=== PATIENT | female | born 1965 | race Caucasian/White ===

== ENCOUNTER 2019-02-06 07:20 | Day surgery (SDC) | payer OTHER ==
[2019-02-05 15:53] LABS: APPEARANCE,URINE Clear (CLEAR); BASOPHILS % (AUTO) 0.8 % (0.0-5.0); BILIRUBIN,URINE Negative (NEGATIVE); COLOR,URINE Yellow (YELLOW); EOSINOPHILS % (AUTO) 1.2 % (0.0-8.0); GLUCOSE, URINE (UA) Negative (NEGATIVE); HEMATOCRIT 46.2 % (36-48); KETONES,URINE Negative (NEGATIVE); LEUKOCYTE ESTERASE ,URINE Negative (NEGATIVE); LYMPHOCYTES % (AUTO) 29.8 % (21.0-51.0); MEAN CORPUSCULAR HEMOGLOBIN 30.3 pg (27.0-33.0); MEAN CORPUSCULAR HGB CONC 33.3 g/dL (32.0-36.0); MEAN CORPUSCULAR VOLUME 90.8 fL (79-99); MONOCYTES % (AUTO) 6.5 % (3.0-13.0); NEUTROPHILS % (AUTO) 61.7 % (40.0-77.0); NITRATE,URINE Negative (NEGATIVE); OCCULT BLOOD,URINE Negative (NEGATIVE); PH,URINE 5.5 (5.0-8.0); PLATELET COUNT (AUTO) 282 K/uL (130-400); PROTEIN,URINE Negative (NEGATIVE); RED BLOOD CELL COUNT(AUTO) 5.09 MIL/uL (4.00-5.50); RED CELL DISTRIBUTION WIDTH 13.6 % (11.0-15.5); UROBILINOGEN,URINE 0.2 mg/dL (0.2-1.0); WHITE BLOOD COUNT (AUTO) 9.2 K/uL (4.8-10.8)
[2019-02-05 15:55] VITALS: BP 135/69
[2019-02-05 16:13] LABS: ALANINE AMINOTRANSFERASE 23 U/L (12-78); ALBUMIN 3.9 g/dL (3.5-5.0); ASPARTATE AMINOTRANSFERASE 15 U/L (10-37); BILIRUBIN,DIRECT < 0.1 mg/dL (0.0-0.3); BILIRUBIN,TOTAL 0.3 mg/dL (0.2-1.0); TOTAL PROTEIN, SERUM 7.6 g/dL (6.0-8.3)
[2019-02-06] VITALS (15 sets, daily range): BP systolic 114–152; BP diastolic 55–87
[~2019-02-06] VITALS: Ht 157.5 cm; Wt 65.2 kg
[~2019-02-06 07:20] MED LIST: ATROPINE SULFATE 0.1 MG/ML 10 ML SYG IVP ONE; CHOL500045 PO; DEXAMETHASONE SOD PHOSPHATE 4 MG/ML 1ML VIAL ONE; ESTR1PAT87 TD; FENTANYL CITRATE PF 50 MCG/1 ML 2ML VIAL ONE; GLYCOPYRROLATE 1 MG/5 ML SYRINGE ONE; LACTATED RINGERS 1000ML 1,000 ML IV SCH; LEVO112T4 PO; LIDOCAINE PF 2% 5ML ABBOJECT ONE; MIDAZOLAM HCL 1 MG/ML 2ML VIAL ONE; NEOSTIGMINE 5MG/5ML SYR IV ONE; ONDANSETRON HCL 4 MG/2 ML VIAL ONE; PROG100C6 PO; PROPOFOL 10 MG/ML 20ML VIAL IV ONE; ROCURONIUM 10MG/1ML SYR 10 MG/ML ML ONE
[2019-02-06] MEDS ORDERED: EPHEDRINE SULFATE 50 MG/ML AMPULE ONE (09:01)
[2019-02-06] MEDS ORDERED: PHENYLEPHRINE HCL 10 MG/ML 1ML VIAL IV ONE (09:09)
[2019-02-06] MEDS ORDERED: ONDANSETRON HCL 4 MG/2 ML VIAL ONE (09:40)
[2019-02-06] MEDS ORDERED: METOCLOPRAMIDE 10 MG/2 ML VIAL ONE (09:49)
--- NOTE | 2019-02-06 10:30 | NUR ---
ASSESSMENT RECEIVED PT FROM PACU STAFF CATIA MARTINEZ. PT AAOX3. BAND AIDES X4 TO ABDOMEN. SOFT TO TOUCH. NO BLEEDING, OOZING NOTED TO SITE. AT BEDSIDE.
--- NOTE | 2019-02-06 11:22 | NUR ---
DISCHARGE ORAL AND WRITTEN DISCHARGE INSTRUCTIONS GIVEN TO PT AND PTS ALONG WITH PRESCRIPTION. DENIES ANY DISCOMFORTS AT THIS TIME. NO OTHER QUESTIONS AT THIS TIME.
== END 2019-02-06 11:23 | disposition home or self-care (01) ==
LOC: DAH 07:20
PROVIDERS: ATTEND Surgery
DX: K80.10 Calculus of gallbladder with chronic cholecystitis without obstruction (principal); E03.9 Hypothyroidism, unspecified; E66.3 Overweight; Z98.890 Other specified postprocedural states; Z79.899 Other long term (current) drug therapy; Z88.8 Allergy status to other drugs, medicaments and biological substances; Z80.9 Family history of malignant neoplasm, unspecified
CPT/HCPCS: 36415; 47562; 80076; 81003; 81025; 85025; A4450; A4600; A4930; C1769 ×4; J1100; J2001; J2250; J2370; J2405 ×2; J2704 ×2; J2710; J2765; J3010; J3490 ×2; J7030; J7120 ×2; J0461

== ENCOUNTER → 2019-11-20 | Outpatient (CLI) | payer OTHER ==
[~2019-11-20] MED LIST changes: -ATROPINE SULFATE 0.1 MG/ML 10 ML SYG IVP ONE; -DEXAMETHASONE SOD PHOSPHATE 4 MG/ML 1ML VIAL ONE; -FENTANYL CITRATE PF 50 MCG/1 ML 2ML VIAL ONE; -GLYCOPYRROLATE 1 MG/5 ML SYRINGE ONE; -LACTATED RINGERS 1000ML 1,000 ML IV SCH; -LIDOCAINE PF 2% 5ML ABBOJECT ONE; -MIDAZOLAM HCL 1 MG/ML 2ML VIAL ONE; -NEOSTIGMINE 5MG/5ML SYR IV ONE; -ONDANSETRON HCL 4 MG/2 ML VIAL ONE; +PROG100C11 PO; -PROG100C6 PO; -PROPOFOL 10 MG/ML 20ML VIAL IV ONE; -ROCURONIUM 10MG/1ML SYR 10 MG/ML ML ONE
== END | disposition home or self-care (01) ==
LOC: RAH 10:30
PROVIDERS: ATTEND Family Medicine
DX: Z13.6 Encounter for screening for cardiovascular disorders (principal)
CPT/HCPCS: 75571

== ENCOUNTER 2021-11-23 08:19 | Day surgery (SDC) | payer OTHER ==
[2021-11-22 12:08] VITALS: BP 127/66
[~2021-11-23] VITALS: Ht 154.9 cm; Wt 64.7 kg
[2021-11-23] VITALS (17 sets, daily range): BP systolic 121–147; BP diastolic 61–85
[~2021-11-23 08:19] MED LIST changes: -PROG100C11 PO
[2021-11-23] MEDS ORDERED: 0.9%NACL 1000ML 0 ML IV ONE (09:02)
[2021-11-23] MEDS ORDERED: LACTATED RINGERS 1000ML 1,000 ML IV ONE ×2 (09:03→09:11)
[2021-11-23] MEDS ORDERED: CEFAZOLIN SODIUM 1 GM VIAL ONE (09:21)
[2021-11-23] MEDS ORDERED: CEFAZOLIN SODIUM 1 GM VIAL IVP SCH (10:00)
[2021-11-23] MEDS ORDERED: BUPIVACAINE/PF 0.5% 10ML VIAL ONE (10:21)
[2021-11-23] MEDS ORDERED: CEFAZOLIN SODIUM 2 GM VIAL IV ONE (10:30)
[2021-11-23] MEDS ORDERED: BUPIVACAINE/EPI/PF 0.25% 10ML VIAL IJ ONE (10:37)
[2021-11-23] MEDS ORDERED: KETOROLAC 15MG/ML VIAL (15MG/ML) ONE (11:31)
== END 2021-11-23 12:26 | disposition home or self-care (01) ==
LOC: DAH 08:19
PROVIDERS: ATTEND Student in an Organized Health Care Education/Training Program
DX: R19.01 Right upper quadrant abdominal swelling, mass and lump (principal); D17.5 Benign lipomatous neoplasm of intra-abdominal organs; Z20.822 Contact with and (suspected) exposure to COVID-19; K21.9 Gastro-esophageal reflux disease without esophagitis; Z79.899 Other long term (current) drug therapy; Z98.890 Other specified postprocedural states; Z90.49 Acquired absence of other specified parts of digestive tract; Z82.49 Family history of ischemic heart disease and other diseases of the circulatory system; Z83.3 Family history of diabetes mellitus; Z79.890 Hormone replacement therapy; Z88.6 Allergy status to analgesic agent
CPT/HCPCS: 21931; 49320; 87635; A4215; A4221; A4222; A4223 ×2; A4649 ×2; A4663; A4930 ×2; A6206; A6260; C1769 ×3; C9803; J0690 ×2; J1885; J3490 ×2; J7030; J7120 ×2

== ENCOUNTER 2025-05-10 08:50 | Emergency (ER) | payer SELFPAY ==
[~2025-05-10] VITALS: Ht 154.9 cm; Wt 59.0 kg
[2025-05-10 09:25] LABS: IMMATURE GRANULOCYTE ABSOLUTE 0.04 K/uL (0-1); NUCLEATED RED BLOOD CELLS 0.0 % (0.0-0.19); PLATELET COUNT (AUTO) 272 K/uL (130-400); RED BLOOD CELL COUNT(AUTO) 4.75 MIL/uL (4.00-5.50); RED CELL DISTRIBUTION WIDTH 13.1 % (11.0-15.5); WHITE BLOOD COUNT (AUTO) 8.5 K/uL (4.8-10.8)
[2025-05-10 09:41] LABS: APPEARANCE,URINE CLEAR (CLEAR); GLUCOSE, URINE (UA) NEGATIVE (NEGATIVE); LEUKOCYTE ESTERASE ,URINE NEGATIVE Leu/uL (NEGATIVE); NITRATE,URINE NEGATIVE (NEGATIVE); OCCULT BLOOD,URINE NEGATIVE (NEGATIVE)
[2025-05-10 09:41] LABS: CREATINE KINASE, TOTAL 58.0 U/L (21-232); CREATININE 0.9 mg/dL (0.5-1.0); GLOMERULAR FILTR. RATE CALC 74.0 mL/min (>90); GLUCOSE,RANDOM 101.0 mg/dL (70-105); SODIUM SERUM 142.0 mmol/L (136-145); UREA NITROGEN, BLOOD 5.0 mg/dL (7-18)
[2025-05-10] MEDS: LACTATED RINGERS 1000ML 1,000 ML IV ONE (09:48)
[2025-05-10 09:53] LABS: ADD UA MICROSCOPIC NO
--- NOTE | 2025-05-10 09:55 | HMCIMG ---
EXAM: CR Chest, 1 View. CLINICAL HISTORY: palpitation COMPARISON: None provided. FINDINGS: LUNGS: The lungs show no infiltrate or other acute finding. PLEURAL SPACES: No evidence of pleural effusion or pneumothorax. MEDIASTINUM: The cardiomediastinal silhouette is within normal limits. BONES: No aggressive appearing osseous lesion seen. IMPRESSION: No acute cardiopulmonary pathology is evident. /[place]
--- NOTE | 2025-05-10 11:25 | ERN ---
General Chief Complaint: Palpitations Stated Complaint: HEART PALPITATIONS Time Seen by MD: 08:54 Source: patient History of Present Illness Initial Comments PATIENT IS A 60-YEAR-OLD FEMALE COMING IN TO BE EVALUATED AFTER AN EPISODE OF RACING HEART. PER PATIENT SHE CHECKED HER PULSE EARLIER TODAY WAS IN THE 113 SO SHE DECIDED TO COME IN FOR FURTHER EVALUATION. SHE WAS RECENTLY TOLD THAT SHE HAS HYPOTHYROIDISM AND HER TSH WAS IN THE 200S. Allergies: Coded Allergies: codeine (Unverified Allergy, Unknown, 11/22/21) Tetracyclines (Unverified Adverse Reaction, Mild, NAUSEA/VOMITING, 02/05/19) Home Meds Reported Medications Cholecalciferol (Vitamin D3) (Vitamin D) 5,000 Unit Tablet, 5000 UNIT PO HS, TAB 02/05/19 Estradiol (Estradiol) 1 Each Patch.tdsw, 1 EACH TD 2 TIMES PER WEEK 02/05/19 Levothyroxine Sodium (Synthroid) 112 Mcg Tablet, 112 MCG PO DAILY, TAB 02/05/19 Past Medical History Past Medical History: No Pertinent History Past Surgical History: Cholecystectomy Surgical History Other: LT ANKLE, LYPHOMA, REMOVAL ROS Dictation CONSTITUTIONAL: NO CHILLS, NO FEVER, NO WEAKNESS, NO DIAPHORESIS, NO MALAISE. HEAD/FACE: NO SIGNS OF TRAUMA. EENT: NO EYE PAIN, NO BLURRED VISION, NO TEARING, NO DOUBLE VISION, NO EAR PAIN, NO EAR DISCHARGE, NO NOSE PAIN, NO NASAL CONGESTION, NO THROAT PAIN, NO THROAT SWELLING, NO MOUTH PAIN. RESPIRATORY: NO COUGH, NO ORTHOPNEA, NO SOB, NO STRIDOR, NO WHEEZING. CARDIOVASCULAR: NO CHEST PAIN, NO EDEMA, PALPITATIONS, NO SYNCOPE. GASTROINTESTINAL/ABDOMINAL: NO ABDOMINAL PAIN, NO CONSTIPATION, NO DIARRHEA, NO NAUSEA, NO VOMITING. GENITOURINARY: NO ABNORMAL DISCHARGE, NO DYSURIA, NO FREQUENT URINATION, NO HEMATURIA. NO COMPLAINTS OF PAIN IN THE GENITALS. MUSCULOSKELETAL: NO BACK PAIN, NO GOUT, NO JOINT PAIN, NO JOINT SWELLING, NO MUSCLE PAIN, NO MUSCLE STIFFNESS, NO NECK PAIN. INTEGUMENTARY: NO CHANGE IN COLOR, NO CHANGE IN HAIR/NAILS, NO DRYNESS, NO LESION, NO LUMPS, NO RASH. NEUROLOGICAL/PSYCH: NO ANXIETY, NOT DEPRESSED, NO EMOTIONAL PROBLEM, NO HEADACHE, NO NUMBNESS, NO PRE-EXISTING DEFICIT, NO HISTORY OF SEIZURES, NO TREMORS, NO WEAKNESS. HEMATOLOGIC/LYMPHATIC: NOT ANEMIC, NO HISTORY OF BLOOD CLOTS, NO APPARENT BLEEDING, NO BRUISING, GLANDS NOT SWOLLEN. ALL SYSTEMS NEGATIVE, EXCEPT NOTED. Physical Exam Physical Exam Dictation VITAL SIGNS: REVIEWED. GENERAL APPEARANCE: ALERT, ORIENTED X3, NO ACUTE DISTRESS, OBESE. HEAD AND FACE: NON-TRAUMATIC. EYES: PERRL, PINK CONJUNCTIVAS, EYELID NO TRAUMA, ANTERIOR CHAMBER CLEAR. EARS: PINNAS INTACT AND NO SIGNS OF TRAUMA OR ERYTHEMA. EAR CANALS CLEAR AND NO DISCHARGE. TMS NO ERYTHEMA. NOSE: NO DISCHARGE, NO BLEEDING. OROPHARYNX: MOUTH NORMAL, TEETH NO CARIES, TONGUE PINK. PHARYNX CLEAR, NO ERYTHEMA. TONSILS NO EXUDATES, NO ABSCESSES NOTED. MUCOUS MEMBRANE MOIST. NECK: SUPPLE, NON-TENDER, NO THYROMEGALY, NO MASSES, NO JVD, NO BRUITS. BREAST: DEFERRED. CHEST: NO TENDERNESS, NO CREPITUS, NO PARADOXICAL MOVEMENT, NO RETRACTIONS. LUNGS: CLEAR, WELL-VENTILATED, SYMMETRIC, NO RALES, NO WHEEZING, NO RHONCHI, NO STRIDOR, GOOD BREATH SOUNDS BILATERALLY. HEART: REGULAR RATE, REGULAR RHYTHM, NO MURMUR, NO GALLOPS. VASCULAR: NO PERIPHERAL EDEMA. ABDOMEN: SOFT, POSITIVE BOWEL SOUNDS, NONDISTENDED, NO GUARDING, NONTENDER, NO REBOUND, NO MASSES NO HEPATOMEGALY, NO SPLENOMEGALY, NO ALFORD'S SIGN, NO HERNIAS. RECTAL: DEFERRED. GENITAL: DEFERRED. NEUROLOGICAL: NORMAL SPEECH, GROSS MOTOR FUNCTION INTACT, GROSS SENSORY FUNC TION INTACT. MUSCULOSKELETAL: NECK NONTENDER, FULL RANGE OF MOTION, BACK NONTENDER, FULL RANGE OF MOTION. EXTREMITIES: NONTENDER, FULL RANGE OF MOTION. SKIN: COLOR PINK, DRY, NO TURGOR, NO RASH, NO LACERATIONS, NO ABRASIONS, NO CONTUSIONS. LYMPHATICS: DEFERRED. Results Laboratory and Microbiology Lab and Micro Result Laboratory Tests Test 05/10/25 09:11 05/10/25 09:28 White Blood Count 8.5 K/uL (4.8-10.8) Red Blood Count 4.75 MIL/uL (4.00-5.50) Hemoglobin 14.6 g/dL (12.0-16.0) Hematocrit 43.9 % (36-48) Mean Corpuscular Volume 92.4 fL (79-99) Mean Corpuscular Hemoglobin 30.7 pg (27.0-33.0) Mean Corpuscular Hemoglobin Concent 33.3 g/dL (32.0-36.0) Red Cell Distribution Width 13.1 % (11.0-15.5) Platelet Count 272 K/uL (130-400) Mean Platelet Volume 10.8 fL (7.5-10.5) H Immature Granulocyte % (Auto) 0.5 % (0-1) Neutrophils (%) (Auto) 70.4 % (40.0-77.0) Lymphocytes (%) (Auto) 20.0 % (21.0-51.0) L Monocytes (%) (Auto) 6.4 % (3.0-13.0) Eosinophils (%) (Auto) 1.9 % (0.0-8.0) Basophils (%) (Auto) 0.8 % (0.0-5.0) Neutrophils # (Auto) 6.0 K/uL (1.8-7.7) Lymphocytes # (Auto) 1.7 K/uL (1.0-4.8) Monocytes # (Auto) 0.5 K/uL (0.1-1.0) Eosinophils # (Auto) 0.16 K/uL (0.00-0.70) Basophils # (Auto) 0.07 K/uL (0.00-0.20) Absolute Immature Granulocyte (auto 0.04 K/uL (0-1) Nucleated Red Blood Cells 0.0 % (0.0-0.19) Sodium Level 142 mmol/L (136-145) Potassium Level 3.6 mmol/L (3.5-5.1) Chloride Level 104 mmol/L (101-111) Carbon Dioxide Level 29 mmol/L (21-32) Blood Urea Nitrogen 5 mg/dL (7-18) L Creatinine 0.9 mg/dL (0.5-1.0) Glomerular Filtration Rate Calc 74 mL/min (>90) Random Glucose 101 mg/dL (70-105) Total Calcium 9.8 mg/dL (8.5-10.1) Magnesium Level 2.40 mg/dL (1.80-2.40) Total Creatine Kinase 58 U/L (21-232) Troponin I High Sensitivity < 4 ng/L (4-50) L Thyroid Stimulating Hormone (TSH) 121.45 uIU/mL (0.36-3.74) H Urine Color COLORLESS (YELLOW) Urine Appearance CLEAR (CLEAR) Urine pH 5.5 (5.0-8.0) Urine Specific [place] 1.005 (1.001-1.031) Urine Protein NEGATIVE mg/dL (NEGATIVE) Urine Glucose (UA) NEGATIVE mg/dL (NEGATIVE) Urine Ketones NEGATIVE mg/dL (NEGATIVE) Urine Occult Blood NEGATIVE (NEGATIVE) Urine Nitrate NEGATIVE (NEGATIVE) Urine Bilirubin NEGATIVE mg/dL (NEGATIVE) Urine Urobilinogen 0.2 mg/dL (0.2-1.0) Urine Leukocyte Esterase NEGATIVE Shana/uL Labs Reviewed?: Yes EKG/XRAY/US/CT/MRI EKG Comment 05/10/2025 TIME 9:00 A.M. VENTRICULAR RATE 65 SINUS RHYTHM [place] [address] WAVE ELEVATION OR DEPRESSION X-RAY Comment [address] [address] IMAGING REPORT Signed PATIENT: IRINA VALDEZ MR#: [id number] : 1965 SEX: F AGE: 60 LOCATION: [facility] ORDER 0 STATUS: [facility] REPORT#: [id number] SERVICE 9 REASON: palpitation ORDERING PHYSICIAN: LISHA HINTON MD PROCEDURE: CXR1VW - CHEST 1VW EXAM: CR Chest, 1 View. CLINICAL HISTORY: palpitation COMPARISON: None provided. FINDINGS: LUNGS: The lungs show no infiltrate or other acute finding. PLEURAL SPACES: No evidence of pleural effusion or pneumothorax. MEDIASTINUM: The cardiomediastinal silhouette is within normal limits. BONES: No aggressive appearing osseous lesion seen. IMPRESSION: No acute cardiopulmonary pathology is evident. /[place] DICTATED BY: SUSANNA HAND Jr., MD DATE: 05/10/251053 ELECTRONICALLY SIGNED BY: SUSANNA HAND Jr., MD DATE: 05/10/251053 MDM MDM: DIFFERENTIAL DIAGNOSIS: ANXIETY, TACHYCARDIA, GERD, HYPOTHYROIDISM, HYPERTHYROIDISM, RATIONALE: TESTS CONSIDERED AND ORDERED SECONDARY TO SHARED DECISION MAKING INCLUDE: PREVIOUS OUTSIDE RECORDS REVIEWED: OLD ER VISITS. RISK OF COMPLICATION AND/OR MORBIDITY OR MORTALITY OF PATIENT MANAGEMENT: NONE MEDICATIONS-PER MEDICATION RECONCILIATION NEED FOR HOSPITALIZATION: PATIENT DOES NOT MEET CRITERIA FOR HOSPITALIZATION. PATIENT IS A 60-YEAR-OLD FEMALE COMING IN TO BE EVALUATED FOR AN EPISODE OF RACING HEART. PATIENT WAS CONCERNED BECAUSE SHE WAS RECENTLY EVALUATED FOR HYPOTHYROIDISM AND WAS FOUND TO HAVE A TSH OF 200. PATIENT STATES HE STARTED TAKING HER MEDICATION BUT IS HERE FOR FURTHER EVALUATION. UPON EVALUATION IN TRIAGE FOR HEART RATE HAS BEEN WITHIN NORMAL LIMITS. LABORATORY WORKUP DID DISCLOSE A TSH OF 121. I TOLD HER SHE WAS WAS TRENDING IN THE RIGHT DIRECTION. ALSO ADVISED HER APPROPRIATE FOLLOW UP WITH PCP AND MACHINE TOOL ELECTRICIAN FOR LONG- TERM MANAGEMENT. ED Course Orders Procedure Category Date Status Time Cbc With Differential LAB 05/10/25 Complete 09:10 Chest 1vw RAD 05/10/25 Resulted 09:10 12 Lead Ekg Tracing- EKG 05/10/25 Logged Technical 09:10 Lactated Ringers PHA 05/10/25 Complete 1000ml (Lactated 09:30 Magnesium LAB 05/10/25 Complete 09:10 Creatine Kinase, Total LAB 05/10/25 Complete 09:10 Troponin I High LAB 05/10/25 Complete Sensitivity 09:10 Urinalysis Profile LAB 05/10/25 Complete 09:10 Basic Metabolic Panel LAB 05/10/25 Complete 09:10 Thyroid Stimulating LAB 05/10/25 Complete Hormone 10:16 Current Medications Medications (Trade) Dose Ordered Sig/Marco Route PRN Reason Start Time Stop Time Status Last Admin Dose Admin Lactated Ringer's 1,000 ml @ 0 mls/hr ONCE ONCE IV 05/10/25 09:30 05/10/25 09:31 DC 05/10/25 09:48 Vital Signs Date Time Temp Pulse Resp B/P (MAP) Pulse Ox O2 Delivery O2 Flow Rate FiO2 05/10/25 09:16 74 18 154/71 97 Room Air* 0 21 05/10/25 08:53 98.2 98 17 149/75 98 0 DX & DISP Disposition: Discharge Departure Impression: Primary Impression: Hypothyroidism Additional Impression: Anxiousness Condition: Stable Additional Instructions: YOU HAVE BEEN REVIEWED IN THE EMERGENCY DEPARTMENT AT [facility] AFTER PRESENTING WITH CHEST PAIN. AFTER CONSIDERING YOUR HISTORY, YOUR RISK FACTORS, YOUR EKG AND YOUR BLOOD TEST TROPONINS, HAVE BEEN FOUND TO BE AT VERY LOW RISK LESS THAN (1 IN 100) OF HAVING A MAJOR ADVERSE CARDIAC EVENT (LIKE HEART ATTACK) IN THE NEAR FUTURE. IN THE " LOW RISK" GROUP, THE RISKS OF DOING FURTHER TESTS AND TREATMENT THE INPATIENT OUTWEIGHS THE BENEFITS. IN MANY PATIENTS IN THE LOW RISK GROUP FOR THE TEST OF ANY SORT OR UNNECESSARY, HOWEVER HE SHOULD DISCUSS THIS FURTHER WITH HIS GENERAL PRACTITIONER WHO WILL UNDERSTAND THE MEDICAL AND PERSONAL BACKGROUNDS BETTER. BECAUSE WE HAVE NEVER DECLARED YOU" NO RISK" WE WOULD SUGGEST. 1 RETURNING FOR MEDICAL REVIEW IF YOU HAVE FURTHER EPISODES OF CHEST PAIN/ARM PAIN OR OTHER CONCERNING SYMPTOMS LIKE DIZZINESS, COLLAPSE, PALPITATIONS OR SHORTNESS OF BREATH. 2. FOLLOWING UP WITH YOUR LOCAL DOCTOR WHO WILL CONSIDER THE NEED FOR FURTHER TESTING AND WILL ALSO ENSURE THAT ANY MODIFIABLE RISK FACTORS YOU MAY HAVE FOR HEART DISEASE ARE OPTIMALLY MANAGED. PATIENT WILL BE DISCHARGED IN STABLE CONDITION AT THE MOMENT DISCHARGE PATIENT STATES , NO CHEST PAIN Referrals: [facility] (PCP) Time of Disposition: 11:24 LISHA HINTON MD May 10, 2025 11:25
[2025-05-10 12:00] VITALS: BP 148/76; PULSE 79; RESP 18; TEMP 97.8; O2SAT 97
--- NOTE | 2025-05-10 14:39 | EKG ---
[facility] Test Date: 2025-05-10 Test Time: 09:00:21 Pat Name: IRINA VALDEZ Department: ED Room: Gender: F [employer]: [id number] : 1965 Requested By: LISHA HINTON Order Number: [id number] Reading MD: Ksenia Rudolph Measurements Intervals [place] Rate: 65 P: 11 [place]: 147 QRS: 38 QRSD: 101 T: -71 QT: 370 QTc: 386 Interpretive Statements Sinus rhythm Low voltage, precordial leads Nonspecific T abnormalities, diffuse leads No previous ECG available for comparison Electronically Signed On 05-11-2025 15:29:16 CDT by Ksenia Rudolph Please click the below link to view image of tracing.
== END 2025-05-10 12:05 | disposition home or self-care (01) ==
LOC: EDH 08:50
DX: E03.9 Hypothyroidism, unspecified (principal); F41.9 Anxiety disorder, unspecified; Z88.5 Allergy status to narcotic agent; Z90.49 Acquired absence of other specified parts of digestive tract; Z79.890 Hormone replacement therapy
CPT/HCPCS: 99285; 96360; 71045; 84443; 82550; 83735; 84484; 80048; 85025; 81003; 36415; 93005; J7120